=== PATIENT | male | born 1965 | race Caucasian/White ===

== ENCOUNTER → 2016-09-25 12:23 | Outpatient (CLI) | payer MEDICAID ==
[2016-04-06 10:38] VITALS: BMI 36.3
[~2016-09-25 12:23] MED LIST: BUSPAR10 MG PO; CALCIUM 600+D T1 TA1 PO; CARAFATE1 G/10 ML PO; CREON (PANCRELI1 CAP PO; CRESTOR10 MG PO; CRESTOR40 MG PO; DEPO TESTOSTERONE IM; DIFLUCAN200 MG PO; FISH OIL 1,0001 CA1 PO; GEMFIBROZIL600 MG PO; GLUCOPHAGE500 MG PO; GLUCOTROL XL 1010 MG PO; GLUCOTROL XL 5 M5 MG PO; HUMALOG 30100 UNITS/ SC; HYDROCODONE-APA1 TAB PO; JANUVIA100 MG PO; LANTUS INSULIN10 ML SC; LANTUS INSULIN10 ML SQ; LANTUS SOL100 UNIT/1; LIPITOR20 MG PO; LISINOPRIL10 MG PO; LISINOPRIL5 MG PO; LOPID600 MG PO; LOTRISONE CREAM45 GM; LOTRISONE CREAM45 GM TOPICAL; LOTRISONE CREAM45 GM TP; LYRICA25 MG PO; LYRICA50 MG PO; NORCO 10/325 TA1 TA1 PO; OS-CAL500 MG PO; PHENERGAN25 M1 PO; PRILOSEC20 MG PO; PRINIVIL20 MG PO; PROTONIX40 MG PO; REQUIP0.5 MG PO; SINEQUAN25 MG PO; TYLENOL 325 MG325 MG PO; VITAMIN D31000 UNI2 PO; WELLBUTRIN SR150 MG PO
[2016-09-25 12:59] LABS: BASOPHILS 0.2 % (0.0-2.0); EOSINOPHILS 0.6 % (0-7); HEMATOCRIT 45.4 % (42.0-54.0); HEMOGLOBIN 15.7 g/dL (13.5-17.5); IMMATURE GRANULOCYTES 0.5 % (0-5); LYMPHOCYTES 31.8 % (15-50); MCH 31.3 pg (26.0-34.0); MCHC 34.6 g/dL (31.0-37.0); MCV 90.4 fL (80.0-100.0); MONOCYTES 7.8 % (2-11); NEUTROPHILS 59.1 % (40-80); PLATELET COUNT 261 10x3/uL (130-400); RBC 5.02 10x6/uL (4.20-6.10); RDW 13.4 % (11.5-14.5); WBC 10.8 10x3/uL (4.8-10.8)
[2016-09-25 13:11] LABS: HEMOGLOBIN A1C 9.8 % (4.8-6.0)
[2016-09-25 13:30] LABS: ALKALINE PHOSPHATASE 58 U/L (46-116); ALT (SGPT) 64 U/L (10-68); BILIRUBIN - TOTAL 0.84 mg/dL (0.2-1.3); CALCIUM 9.1 mg/dL (8.5-10.1); CHLORIDE - SERUM 100 mmol/L (98-107); CHOL - HDL RATIO 5.7 ratio (2.3-4.9); CHOLESTEROL, TOTAL 181 mg/dL (0-200); CREATININE - SERUM 0.9 mg/dL (0.6-1.3); HDL CHOLESTEROL 32 mg/dL (32-96); PROTEIN - SERUM 7.8 g/dL (6.4-8.2); SODIUM 135 mmol/L (136-145); TRIGLYCERIDE 438 mg/dL (30-200); UREA NITROGEN 13 mg/dL (7-18); eGFR NON AFRICAN AMERICAN > 90 mL/min (90-120)
[2016-09-25 13:37] LABS: CALC OSMOLALITY 274 mosm/kg (275-300); GLUCOSE 184 mg/dL (74-106); SCREENING PSA (YEARLY) 0.19 ng/mL (0.00-4.00)
== END | disposition home or self-care (01) ==
LOC: D.LAB 09:00
PROVIDERS: Family Medicine
DX: Z00.00 Encounter for general adult medical examination without abnormal findings (principal); E11.9 Type 2 diabetes mellitus without complications; Z12.5 Encounter for screening for malignant neoplasm of prostate

== ENCOUNTER 2017-04-29 00:24 | Inpatient (IN) | payer MEDICARE, MEDICAID ==
[~2017-04-29] VITALS: Ht 182.9 cm; Wt 117.5 kg
[2017-04-29] MEDS ORDERED: LOMOTIL TABLET1 TAB PO (03:21)
[2017-04-29] MEDS ORDERED: LANTUS INSULIN10 ML SC (03:24)
[2017-04-29] MEDS ORDERED: HUMULIN R100 U/ML SC (03:26)
[2017-04-29] MEDS ORDERED: CYCLOBENZAPRINE10 MG PO (03:29)
[2017-04-30 09:54] VITALS: Ht 182.9 cm; Wt 117.5 kg
[2017-05-03 16:00] VITALS: BP 120/66
[2017-05-03] MEDS ORDERED: ALTOPREV40 MG (16:17)
[2017-05-03] MEDS ORDERED: VITAMIN D10000 UNI1 PO (16:22)
== END 2017-05-03 19:27 | disposition home or self-care (01) | DRG 638 ==
LOC: D.ER 00:24 → D.ICU 02:08 → D.M2 05-01 17:42 → D.SDCHOLD 05-03 10:42 → D.M2 05-03 10:44
PROVIDERS: ADMIT Family Medicine
DX: E13.10 Other specified diabetes mellitus with ketoacidosis without coma (principal); K86.1 Other chronic pancreatitis; E11.40 Type 2 diabetes mellitus with diabetic neuropathy, unspecified; I10 Essential (primary) hypertension; E78.5 Hyperlipidemia, unspecified; F32.9 Major depressive disorder, single episode, unspecified; G25.81 Restless legs syndrome; M54.9 Dorsalgia, unspecified; G89.29 Other chronic pain; K22.70 Barrett's esophagus without dysplasia; E83.42 Hypomagnesemia; E78.1 Pure hyperglyceridemia; E55.9 Vitamin D deficiency, unspecified; Z87.891 Personal history of nicotine dependence

== ENCOUNTER → 2017-07-20 11:54 | Outpatient (CLI) | payer MEDICARE, MEDICAID ==
[2017-04-30 09:54] VITALS: BMI 35.1
[~2017-07-20 11:54] MED LIST changes: +ALTOPREV40 MG; +CYCLOBENZAPRINE10 MG PO; +HUMULIN R100 U/ML SC; +LOMOTIL TABLET1 TAB PO; +VITAMIN D10000 UNI1 PO
== END | disposition home or self-care (01) ==
LOC: D.RAD 11:54
DX: M54.5 Low back pain (principal)

== ENCOUNTER → 2017-08-07 10:06 | Outpatient (CLI) | payer MEDICARE, MEDICAID ==
[2017-04-30 09:54] VITALS: BMI 35.1
[2017-08-07 10:45] LABS: BASOPHILS 0.2 % (0-2); EOSINOPHILS 1.7 % (0-7); HEMATOCRIT 44.2 % (42.0-54.0); IMMATURE GRANULOCYTES 0.2 % (0-5); LYMPHOCYTES 23.9 % (15-50); MCH 32.2 pg (26.0-34.0); MCHC 33.9 g/dL (31.0-37.0); MCV 94.8 fL (80.0-100.0); MEAN PLATELET VOLUME 10.4 fL (7.4-10.4); MONOCYTES 6.8 % (2-11); NEUTROPHILS 67.2 % (40-80); RBC 4.66 10x6/uL (4.20-6.10); RDW 12.7 % (11.5-14.5); WBC 11.3 10x3/uL (4.8-10.8)
[2017-08-07 10:52] LABS: PLATELET COUNT 263 10x3/uL (130-400)
[2017-08-07 11:04] LABS: HEMOGLOBIN A1C 7.5 % (4.8-6.0)
[2017-08-07 11:08] LABS: APPEARANCE CLEAR (CLEAR); BILIRUBIN NEGATIVE (NEGATIVE); COLOR YELLOW (YELLOW); GLUCOSE NEGATIVE (NEGATIVE); KETONE NEGATIVE (NEGATIVE); NITRITE NEGATIVE (NEGATIVE); PROTEIN NEGATIVE (NEGATIVE); UROBILINOGEN NORMAL (NORMAL)
[2017-08-07 11:15] LABS: CALC OSMOLALITY 277 mosm/kg (275-300); CALCIUM 9.7 mg/dL (8.5-10.1); CARBON DIOXIDE 29.3 mmol/L (21.0-32.0); CHLORIDE - SERUM 102 mmol/L (98-107); CHOL - HDL RATIO 3.2 ratio (2.3-4.9); CHOLESTEROL, TOTAL 143 mg/dL (0-200); GLUCOSE 112 mg/dL (74-106); HDL CHOLESTEROL 45 mg/dL (32-96); LDL CHOLESTEROL 67 mg/dL (0-100); LDL-HDL RATIO 1.5 ratio (1.5-3.5); POTASSIUM - SERUM 4.4 mmol/L (3.5-5.1); SODIUM 139 mmol/L (136-145); TRIGLYCERIDE 159 mg/dL (30-200); UREA NITROGEN 10 mg/dL (7-18); eGFR NON AFRICAN AMERICAN 84 mL/min (90-120)
[2017-08-08 06:12] LABS: VITAMIN D 25 HYDROXY 43.1 ng/mL (30.0-100.0)
[2017-08-09 15:18] LABS: TESTOSTERONE - FREE 11.4 pg/mL (6.8-21.5); TESTOSTERONE - SERUM 322 ng/dL (264-916)
== END | disposition home or self-care (01) ==
LOC: D.LAB 10:06
PROVIDERS: Family Medicine
DX: E11.9 Type 2 diabetes mellitus without complications (principal); E55.9 Vitamin D deficiency, unspecified; E78.1 Pure hyperglyceridemia; E78.81 Lipoid dermatoarthritis; G60.9 Hereditary and idiopathic neuropathy, unspecified; E23.6 Other disorders of pituitary gland

== ENCOUNTER 2017-10-20 21:55 | Emergency (ER) | payer MEDICARE, MEDICAID ==
[2017-04-30 09:54] VITALS: BMI 35.1
== END 2017-10-20 23:25 | disposition home or self-care (01) ==
LOC: D.ER 21:55
DX: R07.89 Other chest pain (principal); E11.9 Type 2 diabetes mellitus without complications; Z79.4 Long term (current) use of insulin; F17.200 Nicotine dependence, unspecified, uncomplicated

== ENCOUNTER 2017-11-18 18:10 | Emergency (ER) | payer MEDICARE, MEDICAID ==
[2017-04-30 09:54] VITALS: BMI 35.1
[2017-11-18 18:38] LABS: BASOPHILS 0.2 % (0-2); EOSINOPHILS 1.4 % (0-7); HEMATOCRIT 42.5 % (42.0-54.0); IMMATURE GRANULOCYTES 0.7 % (0-5); LYMPHOCYTES 35.5 % (15-50); MCH 31.8 pg (26.0-34.0); MCHC 35.3 g/dL (31.0-37.0); MEAN PLATELET VOLUME 10.6 fL (7.4-10.4); MONOCYTES 7.6 % (2-11); NEUTROPHILS 54.6 % (40-80); PLATELET COUNT 256 10x3/uL (130-400); RBC 4.72 10x6/uL (4.20-6.10); RDW 12.6 % (11.5-14.5); WBC 10.4 10x3/uL (4.8-10.8)
[2017-11-18 18:58] LABS: ALBUMIN 4.1 g/dL (3.4-5.0); ALKALINE PHOSPHATASE 60 U/L (46-116); ALT (SGPT) 46 U/L (10-68); BILIRUBIN - TOTAL 0.49 mg/dL (0.2-1.3); CALC OSMOLALITY 279 mosm/kg (275-300); CALCIUM 9.8 mg/dL (8.5-10.1); CARBON DIOXIDE 22.1 mmol/L (21.0-32.0); CHLORIDE - SERUM 97 mmol/L (98-107); POTASSIUM - SERUM 4.2 mmol/L (3.5-5.1); PROTEIN - SERUM 8.1 g/dL (6.4-8.2); SODIUM 135 mmol/L (136-145); UREA NITROGEN 15 mg/dL (7-18); eGFR NON AFRICAN AMERICAN 84 mL/min (90-120)
[2017-11-18 19:01] LABS: GLUCOSE 269 mg/dL (74-106)
[2017-11-18 19:04] LABS: APPEARANCE CLEAR (CLEAR); BILIRUBIN NEGATIVE (NEGATIVE); COLOR YELLOW (YELLOW); GLUCOSE 1000 mg/dL (NEGATIVE); KETONE NEGATIVE (NEGATIVE); NITRITE NEGATIVE (NEGATIVE); PROTEIN NEGATIVE (NEGATIVE); UROBILINOGEN NORMAL (NORMAL)
== END 2017-11-18 20:00 | disposition home or self-care (01) ==
LOC: D.ER 18:10
PROVIDERS: Family Medicine; Physician Assistant Medical
DX: R55 Syncope and collapse (principal); E11.65 Type 2 diabetes mellitus with hyperglycemia; Z79.4 Long term (current) use of insulin

== ENCOUNTER → 2018-01-01 10:27 | Outpatient (CLI) | payer MEDICARE, MEDICAID ==
[2017-04-30 09:54] VITALS: BMI 35.1
== END | disposition home or self-care (01) ==
LOC: D.LAB 10:27
PROVIDERS: Family Medicine
DX: E11.9 Type 2 diabetes mellitus without complications (principal)

== ENCOUNTER → 2018-06-03 15:05 | Outpatient (CLI) | payer MEDICARE, MEDICAID ==
[2017-04-30 09:54] VITALS: BMI 35.1
[2018-06-03 15:43] LABS: APPEARANCE CLEAR (CLEAR); COLOR YELLOW (YELLOW); SPECIFIC GRAVITY 1.015 (1.005-1.020)
[2018-06-03 15:44] LABS: BILIRUBIN NEGATIVE (NEGATIVE); GLUCOSE NEGATIVE (NEGATIVE); KETONE NEGATIVE (NEGATIVE); NITRITE NEGATIVE (NEGATIVE); PROTEIN NEGATIVE (NEGATIVE); UROBILINOGEN NORMAL (NORMAL)
[2018-06-03 16:01] LABS: ALBUMIN 4.1 g/dL (3.4-5.0); ALKALINE PHOSPHATASE 47 U/L (46-116); ALT (SGPT) 55 U/L (10-68); BILIRUBIN - TOTAL 0.53 mg/dL (0.2-1.3); CALC OSMOLALITY 278 mosm/kg (275-300); CALCIUM 9.5 mg/dL (8.5-10.1); CARBON DIOXIDE 22.2 mmol/L (21.0-32.0); CHLORIDE - SERUM 102 mmol/L (98-107); CHOLESTEROL, TOTAL 170 mg/dL (0-200); CREATININE - SERUM 0.9 mg/dL (0.6-1.3); GLUCOSE 93 mg/dL (74-106); HDL CHOLESTEROL 34 mg/dL (32-96); LDL CHOLESTEROL 64 mg/dL (0-100); LDL-HDL RATIO 1.9 ratio (1.5-3.5); PROTEIN - SERUM 7.5 g/dL (6.4-8.2); SODIUM 139 mmol/L (136-145); TRIGLYCERIDE 363 mg/dL (30-200); UREA NITROGEN 14 mg/dL (7-18); eGFR NON AFRICAN AMERICAN > 90 mL/min (90-120)
== END | disposition home or self-care (01) ==
LOC: D.LAB 11:00
PROVIDERS: Family Medicine
DX: E11.8 Type 2 diabetes mellitus with unspecified complications (principal); M54.5 Low back pain; I10 Essential (primary) hypertension; E78.81 Lipoid dermatoarthritis

== ENCOUNTER → 2018-06-28 14:11 | Outpatient (CLI) | payer MEDICARE, MEDICAID ==
[2017-04-30 09:54] VITALS: BMI 35.1
[2018-06-28 15:15] LABS: BASOPHILS 0.3 % (0-2); EOSINOPHILS 1.5 % (0-7); HEMATOCRIT 41.8 % (42.0-54.0); HEMOGLOBIN 14.2 g/dL (13.5-17.5); IMMATURE GRANULOCYTES 0.6 % (0-5); LYMPHOCYTES 37.1 % (15-50); MCH 31.4 pg (26.0-34.0); MCV 92.5 fL (80.0-100.0); MEAN PLATELET VOLUME 10.6 fL (7.4-10.4); MONOCYTES 7.1 % (2-11); NEUTROPHILS 53.4 % (40-80); RBC 4.52 10x6/uL (4.20-6.10); RDW 12.9 % (11.5-14.5)
[2018-06-28 15:50] LABS: PLATELET COUNT 324 10x3/uL (130-400)
[2018-06-28 17:17] LABS: ERYTHROCYTE SEDIMENTATION RATE 15 mm/hr (0-20)
== END | disposition home or self-care (01) ==
LOC: D.CT 14:11
PROVIDERS: Family Medicine
DX: R51 Headache (principal); J01.90 Acute sinusitis, unspecified; H53.9 Unspecified visual disturbance

== ENCOUNTER → 2018-09-04 12:41 | Outpatient (CLI) | payer MEDICARE, MEDICAID ==
[2017-04-30 09:54] VITALS: BMI 35.1
== END | disposition home or self-care (01) ==
LOC: D.LAB 12:41
DX: E23.6 Other disorders of pituitary gland (principal)

== ENCOUNTER 2018-10-20 15:51 | Emergency (ER) | payer MEDICARE, MEDICAID ==
[~2018-10-20] VITALS: Ht 182.9 cm; Wt 131.8 kg
[2018-10-20 15:54] VITALS: Ht 182.9 cm; Wt 131.8 kg
[2018-10-20 16:24] LABS: BASOPHILS 0.4 % (0-2); EOSINOPHILS 0.1 % (0-7); HEMATOCRIT 41.8 % (42.0-54.0); HEMOGLOBIN 14.5 g/dL (13.5-17.5); IMMATURE GRANULOCYTES 0.7 % (0-5); LYMPHOCYTES 13.5 % (15-50); MCH 31.3 pg (26.0-34.0); MCHC 34.7 g/dL (31.0-37.0); MCV 90.3 fL (80.0-100.0); MEAN PLATELET VOLUME 10.2 fL (7.4-10.4); MONOCYTES 11.9 % (2-11); NEUTROPHILS 73.4 % (40-80); RBC 4.63 10x6/uL (4.20-6.10); RDW 13.8 % (11.5-14.5); WBC 8.1 10x3/uL (4.8-10.8)
[2018-10-20 16:36] LABS: ALBUMIN 3.7 g/dL (3.4-5.0); ALKALINE PHOSPHATASE 77 U/L (46-116); ALT (SGPT) 104 U/L (10-68); CALC OSMOLALITY 274 mosm/kg (275-300); CALCIUM 8.8 mg/dL (8.5-10.1); CARBON DIOXIDE 21.8 mmol/L (21.0-32.0); CHLORIDE - SERUM 91 mmol/L (98-107); CREATININE - SERUM 1.4 mg/dL (0.6-1.3); POTASSIUM - SERUM 4.6 mmol/L (3.5-5.1); SODIUM 128 mmol/L (136-145); UREA NITROGEN 20 mg/dL (7-18); eGFR NON AFRICAN AMERICAN 57 mL/min (90-120)
[2018-10-20 16:39] LABS: GLUCOSE 362 mg/dL (74-106); PLATELET COUNT 209 10x3/uL (130-400)
[2018-10-20 16:47] LABS: CKMB 0.5 U/L (0.0-3.6); CREATINE KINASE 226 UL (21-232)
[2018-10-20 16:48] LABS: TROPONIN-I < 0.017 ng/mL (0.000-0.060)
[2018-10-20 17:41] LABS: AMYLASE - SERUM 17 U/L (25-115)
[2018-10-20 17:42] LABS: LIPASE 46 U/L (73-393)
[2018-10-20 18:29] LABS: KETONE - SERUM NEGATIVE (NEGATIVE)
[2018-10-20 20:02] LABS: APPEARANCE CLEAR (CLEAR); BILIRUBIN NEGATIVE (NEGATIVE); COLOR YELLOW (YELLOW); GLUCOSE 1000 mg/dL (NEGATIVE); KETONE MODERATE mg/dL (NEGATIVE); NITRITE NEGATIVE (NEGATIVE); PROTEIN NEGATIVE (NEGATIVE); UROBILINOGEN NORMAL (NORMAL)
[2018-10-20] MEDS ORDERED: GUAIFENESI100 MG/5 M PO (20:48)
[2018-10-20] MEDS ORDERED: PHENERGAN25 M1 PO (20:48)
[2018-10-20] MEDS ORDERED: TAMIFLU75 MG PO (20:48)
[2018-10-20 21:05] VITALS: BP 148/79
== END 2018-10-20 21:05 | disposition home or self-care (01) ==
LOC: D.ER 15:51
PROVIDERS: Emergency Medicine
DX: J09.X2 Influenza due to identified novel influenza A virus with other respiratory manifestations (principal); E86.0 Dehydration; R74.8 Abnormal levels of other serum enzymes; R53.1 Weakness

== ENCOUNTER 2018-12-26 13:18 | Inpatient (IN) | payer MEDICARE, MEDICAID ==
[~2018-12-26] VITALS: Ht 182.9 cm; Wt 127.0 kg
[~2018-12-26 13:18] MED LIST changes: +GUAIFENESI100 MG/5 M PO; +TAMIFLU75 MG PO
[2018-12-26] MEDS ORDERED: CREON (PANCRELI1 CAP PO ×2 (13:38→13:39)
[2018-12-26 14:16] LABS: BASOPHILS 0.2 % (0-2); EOSINOPHILS 1.1 % (0-7); HEMATOCRIT 45.6 % (42.0-54.0); HEMOGLOBIN 15.8 g/dL (13.5-17.5); IMMATURE GRANULOCYTES 0.4 % (0-5); MCHC 34.6 g/dL (31.0-37.0); MCV 86.7 fL (80.0-100.0); MEAN PLATELET VOLUME 10.6 fL (7.4-10.4); MONOCYTES 8.6 % (2-11); NEUTROPHILS 56.7 % (40-80); PLATELET COUNT 208 10x3/uL (130-400); RBC 5.26 10x6/uL (4.20-6.10); RDW 13.6 % (11.5-14.5); WBC 8.5 10x3/uL (4.8-10.8)
[2018-12-26 14:29] LABS: ALBUMIN 3.7 g/dL (3.4-5.0); ALKALINE PHOSPHATASE 77 U/L (46-116); ALT (SGPT) 62 U/L (10-68); AMYLASE - SERUM 14 U/L (25-115); BILIRUBIN - TOTAL 1.19 mg/dL (0.2-1.3); CALCIUM 9.1 mg/dL (8.5-10.1); CARBON DIOXIDE 22.2 mmol/L (21.0-32.0); CHLORIDE - SERUM 92 mmol/L (98-107); CREATININE - SERUM 1.2 mg/dL (0.6-1.3); POTASSIUM - SERUM 5.2 mmol/L (3.5-5.1); PROTEIN - SERUM 7.9 g/dL (6.4-8.2); SODIUM 126 mmol/L (136-145); UREA NITROGEN 15 mg/dL (7-18); eGFR NON AFRICAN AMERICAN 68 mL/min (90-120)
[2018-12-26 14:32] LABS: CALC OSMOLALITY 277 mosm/kg (275-300); LIPASE 40 U/L (73-393); TROPONIN-I < 0.017 ng/mL (0.000-0.060)
[2018-12-26 14:33] LABS: GLUCOSE 523 mg/dL (74-106)
[2018-12-26 14:54] LABS: APPEARANCE CLEAR (CLEAR); BILIRUBIN NEGATIVE (NEGATIVE); COLOR STRAW (YELLOW); GLUCOSE 250 mg/dL (NEGATIVE); KETONE NEGATIVE (NEGATIVE); NITRITE NEGATIVE (NEGATIVE); PROTEIN NEGATIVE (NEGATIVE); SPECIFIC GRAVITY 1.015 (1.005-1.020); UROBILINOGEN NORMAL (NORMAL)
--- NOTE | 2018-12-26 17:19 | MORECARE ---
CASE MANAGEMENT DISCHARGE SUMMARY PATIENT: OBINNA TAYLOR UNIT: [id number] ADM DATE: 12/26/18 AGE: 53 : 69 SEX: M ROOM/BED: D.2230 AUTHOR: RODNEY,DOC PHYSICIAN: REFERRING PHYSICIAN: ROSHNI MG MD DATE OF SERVICE: 12/26/18 Discharge Plan Patient Name: OBINNA TAYLOR Facility: [facility]:[place] : 1965 Planned Disposition: Home Anticipated Discharge Date: 12/28/18 Discharge Date: Expected LOS: 2 Initial Reviewer: [email or web address] Initial Review Date: 12/26/2018 Generated: 12/26/18 6:18 pm DCP- Discharge Planning Updated by [email or web address]: Zora Back on 12/26/18 4:[address] Patient Name: OBINNA TAYLOR Admission Status: ER Accout number: [id number] Admission Date: 12-26-2018 : 1965 Admission Diagnosis: Attending: ROSHNI MG Current LOS: 1 Anticipated DC Date: 12-28-2018 Planned Disposition: Home Primary Insurance: [facility] MEDICARE SOLUTIONS Discharge Planning Comments: CM met with patient to complete initial dc planning assessment. CM educated patient on the CM role and verbal consent given by patient to complete assessment. CM verified patient's address, phone number, and emergency contact phone numbers. Patient lives at home alone and reports he is independent in his care at home. At discharge patient plans to return home alone and feels this is a safe discharge. CM discussed availability of home health, rehab services, and medical equipment. Patient denied known discharge needs at this time. Patient reports he has numerous friends or adventist members that will transport him home at time of discharge. CM will continue to follow and will assist as needed with dc plans/needs. Regional Vice President Surgical Sales: Zora Back RN, [facility] DCPIA - Discharge Planning Initial Assessment Updated by [email or web address]: Zora Back on 12/26/18 5:17 pm * Is the patient Alert and Oriented? Yes * PCP Dr. Mg * Pharmacy [facility] [facility] * Preadmission Environment Home Alone * ADLs Independent * Equipment Cane Glucometer * Other Equipment Checks his sugar qid. Denies any problems getting or purchasing his diabetes supplies. * List name and contact numbers for known caregivers / representatives who currently or will assist patient after discharge: Анна Hayes - sister - [phone] * Verbal permission to speak to the caregivers and representatives has been obtained from the patient. Yes * Community resources currently utilized None * Additional services required to return to the preadmission environment? No * Can the patient safely return to the preadmission environment? Yes * Has this patient been hospitalized within the prior 30 days at any hospital? No Patient Name: OBINNA TAYLOR Page [id number] at 1719 All edits/amendments must be made on the electronic document DICTATION DATE: 12/26/181717 ASSET MANAGEMENT LEAD: JULITA 12/26/181717 RPT#: [id number] DC DATE: STATUS: ADM IN [facility] [address] [place] [address] END OF REPORT
--- NOTE | 2018-12-26 17:45 | NUR ---
ASSESSMENT PER FLOW SHEET. PT IS WITHOUT DISTRESS.ORIENTATION TO ROOM.CALL LIGHT IN REACH.WATER PROVIDED.
[2018-12-26] MEDS ORDERED: GLUCOTROL XL 1010 MG PO (18:23)
[2018-12-26] MEDS ORDERED: GLUCOPHAGE1000 MG PO (18:24)
[2018-12-26] MEDS ORDERED: GLUCOPHAGE500 MG PO (18:24)
[2018-12-26] MEDS ORDERED: LANTUS INSULIN10 ML SC (18:25)
[2018-12-26] MEDS ORDERED: CRESTOR40 MG PO (18:27)
[2018-12-26] MEDS ORDERED: LOPID600 MG PO (18:27)
[2018-12-26 18:44] VITALS: BP 148/99; BMI 38.0
[2018-12-26 20:00] VITALS: BP 126/80
[2018-12-26] MEDS ORDERED: PROTONIX40 MG PO (22:04)
[2018-12-27] VITALS: BP 102/56
--- NOTE | 2018-12-27 00:46 | NUR ---
C/O 8/10 ABDOMINAL PAIN AND EPISODES OF DIARRHEA. NO N/V. BOWEL SOUNDS HYPERACTIVE.REQUESTS PRN PAIN AND DIARRHEA MEDICATION.
--- NOTE | 2018-12-27 03:43 | NUR ---
I have reviewed this patient and I concur with the Shift Assessment completed by the Licensed Practical Nurse today this shift.
[2018-12-27 04:00] VITALS: BP 97/52
[2018-12-27 05:08] LABS: BASOPHILS 0.3 % (0-2); EOSINOPHILS 1.7 % (0-7); HEMATOCRIT 39.5 % (42.0-54.0); HEMOGLOBIN 13.7 g/dL (13.5-17.5); IMMATURE GRANULOCYTES 0.3 % (0-5); LYMPHOCYTES 48.6 % (15-50); MCH 30.2 pg (26.0-34.0); MCHC 34.7 g/dL (31.0-37.0); MEAN PLATELET VOLUME 10.6 fL (7.4-10.4); MONOCYTES 7.4 % (2-11); NEUTROPHILS 41.7 % (40-80); PLATELET COUNT 205 10x3/uL (130-400); RBC 4.54 10x6/uL (4.20-6.10); RDW 13.6 % (11.5-14.5); WBC 6.7 10x3/uL (4.8-10.8)
[2018-12-27 05:33] LABS: ALKALINE PHOSPHATASE 64 U/L (46-116); ALT (SGPT) 53 U/L (10-68); CALCIUM 8.2 mg/dL (8.5-10.1); CARBON DIOXIDE 23.1 mmol/L (21.0-32.0); CHLORIDE - SERUM 100 mmol/L (98-107); CHOL - HDL RATIO 8.5 ratio (2.3-4.9); CHOLESTEROL, TOTAL 203 mg/dL (0-200); CREATININE - SERUM 0.9 mg/dL (0.6-1.3); HDL CHOLESTEROL 24 mg/dL (32-96); PROTEIN - SERUM 6.6 g/dL (6.4-8.2); SODIUM 134 mmol/L (136-145); UREA NITROGEN 14 mg/dL (7-18); eGFR NON AFRICAN AMERICAN > 90 mL/min (90-120)
[2018-12-27 05:36] LABS: CALC OSMOLALITY 278 mosm/kg (275-300); GLUCOSE 271 mg/dL (74-106); POTASSIUM - SERUM 3.8 mmol/L (3.5-5.1); TRIGLYCERIDE 1088 mg/dL (30-200)
--- NOTE | 2018-12-27 08:00 | NUR ---
LYING IN BED,WITHOUT DISTRESS.MONITOR FOR NEEDS
[2018-12-27 09:49] VITALS: BP 132/78
[2018-12-27 12:01] VITALS: Ht 182.9 cm; Wt 127.0 kg
[2018-12-27 14:38] VITALS: BP 130/83
--- NOTE | 2018-12-27 15:37 | NUR ---
ATTEMPTED X 2 WITH 22 GAUGE IV IN LEFT ARM WITHOUT ANY SUCCESS GOT A FLASH THEN THE CATHETER WOULD NOT THREAD BOTH IV CATHETERS DC WITH TIPS INTACT. CHASTITY HEARD RN STARTED A 22 GAUGE IN RIGHT HAND FLUSHED WITHOUT DIFFICULTY SECURED WITH TEGADERM AND TAPE. SALINE LOCKED
[2018-12-27 18:02] VITALS: BP 136/85
[2018-12-27 19:53] VITALS: BP 144/86
--- NOTE | 2018-12-27 21:30 | NUR ---
PT REQUEST HIS PRN FLEXERIL THAT HE TAKES AT HOME. NOT ON MAR, NOTIFIED AND ORDER ENTERED. SAP BASIS ARCHITECT NOTIFIED TO PULL FROM [facility]. PT INFORMED AND VERBALIZES UNDERSTANDING.
--- NOTE | 2018-12-28 03:55 | NUR ---
I have reviewed this patient and I concur with the Shift Assessment completed by the Licensed Practical Nurse today this shift.
[2018-12-28 04:00] VITALS: BP 126/83
[2018-12-28 06:37] LABS: ALBUMIN 2.9 g/dL (3.4-5.0); ALKALINE PHOSPHATASE 63 U/L (46-116); ALT (SGPT) 54 U/L (10-68); BILIRUBIN - TOTAL 0.71 mg/dL (0.2-1.3); CALCIUM 8.2 mg/dL (8.5-10.1); CARBON DIOXIDE 21.6 mmol/L (21.0-32.0); CHLORIDE - SERUM 105 mmol/L (98-107); CREATININE - SERUM 0.8 mg/dL (0.6-1.3); MAGNESIUM - SERUM 1.9 mg/dL (1.8-2.4); PHOSPHOROUS 3.7 mg/dL (2.5-4.9); POTASSIUM - SERUM 3.7 mmol/L (3.5-5.1); PROTEIN - SERUM 6.4 g/dL (6.4-8.2); SODIUM 137 mmol/L (136-145); eGFR NON AFRICAN AMERICAN > 90 mL/min (90-120)
[2018-12-28 06:39] LABS: CALC OSMOLALITY 278 mosm/kg (275-300); GLUCOSE 203 mg/dL (74-106); UREA NITROGEN 9 mg/dL (7-18)
--- NOTE | 2018-12-28 09:00 | NUR ---
ALERT AND ORIENTED X3. LUNGS CTA.ABDOMEN OBESE WITH BS NOTED X4. C/O DIARRHEA STOOL. IMMODIUM GIVEN PRN. EVF INFUSING AT PRESCRIBED RATE TO RT. WRIST. ENCOURAGED TO USE CALL LIGHT FOR ASSIST.
[2018-12-28 09:34] VITALS: BP 135/76
[2018-12-28 13:09] VITALS: BP 128/77
[2018-12-28 16:26] VITALS: BP 124/85
--- NOTE | 2018-12-28 19:40 | NUR ---
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 ALERT AND ORIENTED X4. RESP EVEN AND NONLABORED. BBS CTA. ABD DISTENDED AND FIRM. BS PRESENT X4 QUADS. DENIES PAIN. NO N/V/D. LAST EPISODE OF DIARRHEA WAS THIS AM. 1+ EDEMA NOTED TO BLE. MVI INFUSING @ 125 ML/HR INFUSING IN RT WRIST WITHOUT DIFF. AMBULATORY WITH CANE. CL IN REACH.
[2018-12-28 19:52] VITALS: BP 155/80
--- NOTE | 2018-12-28 21:33 | NUR ---
REQUESTS FLEXERIL FOR MUSCLE SPASMS IN BLE. CL IN REACH.
[2018-12-29] VITALS: BP 132/77
[2018-12-29 04:00] VITALS: BP 121/72
--- NOTE | 2018-12-29 08:30 | NUR ---
ALERT AND ORIENTED WITH ABDOMEN OBESE WITH BS NOTED. IVF INFUSING AT PRESCRIBED RATE TO RT. WRIST. LUNGS CTA WITH HRRR. DENIES ANY PAIN OR DISCOMFORT AND ENCOURAGED TO USE CALL LIGHT FOR ASIST
[2018-12-29 09:03] VITALS: BP 151/84
[2018-12-29 12:40] VITALS: BP 145/80
[2018-12-29 17:09] VITALS: BP 141/92
--- NOTE | 2018-12-29 19:50 | NUR ---
SITTING UP ON SIDE OF BED. DENIES PAIN, N/V/D. TALKATIVE. NO DISTRESS. RESP EVEN AND NONLABORED. MVI INFUSING IN RT WRIST WITHOUT DIFF. ABD DISTENDED AND FIRM. BS PRESENT X4 QUADS. BBS CTA. 2+ EDEMA NOTED TO BLE. RT HEEL HAS A CRACK. CL IN REACH. ALERT AND ORIENTED X4.
[2018-12-29 20:00] VITALS: BP 147/73
[2018-12-30] VITALS: BP 151/70
--- NOTE | 2018-12-30 01:28 | NUR ---
HAS RESTED WELL SO FAR THIS SHIFT. RECEIVED A FLEXERIL AT BEDTIME FOR MUSCLE PAIN IN BLE. CL IN REACH.
[2018-12-30 03:00] VITALS: BP 144/84
[2018-12-30 08:46] VITALS: BP 136/81
[2018-12-30 12:30] VITALS: BP 138/85
--- NOTE | 2018-12-30 12:34 | NUR ---
PT RESTING IN BED. NO SIGNS OF DISTRESS. IV TO RIGHT WRIST PATENT NO REDNESS OR TENDERNESS. DENIES ANY FUTHER NEED AT THIS TIME. CALL LIGHT IN REACH. BED LOW POSITION. NO FAMILY AT BEDSIDE AT THIS TIME.
--- NOTE | 2018-12-30 13:00 | NUR ---
I have reviewed this patient and I concur with the Shift Assessment completed by the Licensed Practical Nurse today this shift.
--- NOTE | 2018-12-30 13:42 | NUR ---
Nutrition Follow up Diet advanced to [facility] with 100% intake of meals Pt reports tolerating meals well and he hopes to d/c tomorrow Pt has no questions about diabetic diet RD following
[2018-12-30 17:01] VITALS: BP 148/88
--- NOTE | 2018-12-30 19:51 | NUR ---
REC'D IN BED PLAYING GAME ON PHONE.DENIES NAUSEA AT PRESENT TIME WILL CONTINUE TO MONITOR FOR ANY AHGES. AND FOLLOW CURRENT PLAN OF CARE.
[2018-12-30 20:06] LABS: OVA + PARASITE EXAM Final report (())
[2018-12-30 21:31] VITALS: BP 138/84
[2018-12-31 00:18] VITALS: BP 131/65
[2018-12-31 04:15] LABS: BASOPHILS 0.3 % (0-2); EOSINOPHILS 1.6 % (0-7); HEMATOCRIT 41.8 % (42.0-54.0); HEMOGLOBIN 14.3 g/dL (13.5-17.5); IMMATURE GRANULOCYTES 0.3 % (0-5); LYMPHOCYTES 42.9 % (15-50); MCH 29.5 pg (26.0-34.0); MCHC 34.2 g/dL (31.0-37.0); MCV 86.4 fL (80.0-100.0); MEAN PLATELET VOLUME 10.9 fL (7.4-10.4); MONOCYTES 8.9 % (2-11); PLATELET COUNT 203 10x3/uL (130-400); RBC 4.84 10x6/uL (4.20-6.10); RDW 13.3 % (11.5-14.5); WBC 6.3 10x3/uL (4.8-10.8)
--- NOTE | 2018-12-31 04:21 | NUR ---
I have reviewed this patient and I concur with the Shift Assessment completed by the Licensed Practical Nurse today this shift.
[2018-12-31 04:29] LABS: CALC OSMOLALITY 280 mosm/kg (275-300); CALCIUM 8.8 mg/dL (8.5-10.1); CARBON DIOXIDE 25.3 mmol/L (21.0-32.0); CHLORIDE - SERUM 102 mmol/L (98-107); CREATININE - SERUM 0.9 mg/dL (0.6-1.3); GLUCOSE 219 mg/dL (74-106); POTASSIUM - SERUM 4.1 mmol/L (3.5-5.1); SODIUM 137 mmol/L (136-145); UREA NITROGEN 12 mg/dL (7-18); eGFR NON AFRICAN AMERICAN > 90 mL/min (90-120)
[2018-12-31 05:03] VITALS: BP 134/60
[2018-12-31] MEDS ORDERED: FLAGYL500 MG PO (08:15)
[2018-12-31] MEDS ORDERED: LEVOFLOXACIN500 MG PO (08:15)
[2018-12-31] MEDS ORDERED: FLORAJEN3 CAPS460 MG PO (08:16)
--- NOTE | 2018-12-31 08:17 | NUR ---
PT RESTING IN BED. NO SIGNS OF DISTRESS. IV TO LEFT WRIST PATENT NO REDNESS OR TENDERNESS. DENIES ANY FUTHER NEED AT THIS TIME. CALL LIGHT IN REACH. BED LOW POSITION. NO FAMILY AT BEDSIDE AT THIS TIME.
[2018-12-31 08:43] VITALS: BP 133/71
--- NOTE | 2018-12-31 09:48 | MORECARE ---
CASE MANAGEMENT DISCHARGE SUMMARY PATIENT: OBINNA TAYLOR UNIT: [id number] ADM DATE: 12/26/18 AGE: 53 : 69 SEX: M ROOM/BED: D.2230 AUTHOR: RODNEYDOC PHYSICIAN: REFERRING PHYSICIAN: ROSHNI MG MD DATE OF SERVICE: 12/31/18 Discharge Plan Patient Name: OBINNA TAYLOR Facility: [facility]:[place] : 1965 Planned Disposition: Home Anticipated Discharge Date: 12/28/18 Discharge Date: Expected LOS: 2 Initial Reviewer: [email or web address] Initial Review Date: 12/26/2018 Generated: 12/31/18 10:48 am Comments DCP- Discharge Planning Updated by [email or web address]: Anna Marie Vuong on 12/31/18 8:[address] Patient Name: OBINNA TAYLOR Encounter No: [id number] : 1965 Primary Insurance: [facility] MEDICARE SOLUTIONS Anticipated DC Date: 12-28-2018 Planned Disposition: Home External Planned Provider: : DCP follow-up note: Patient and family in agreement with discharge plan. No changes to plan. Case management will follow and assist as needed. Anna Marie Vuong DCP- Discharge Planning Updated by [email or web address]: Zora Back on 12/26/18 4:[address] Patient Name: OBINNA TAYLOR Admission Status: ER Accout number: [id number] Admission Date: 12-26-2018 : 1965 Admission Diagnosis: Attending: ROSHNI MG Current LOS: 1 Anticipated DC Date: 12-28-2018 Planned Disposition: Home Primary Insurance: [facility] MEDICARE SOLUTIONS Discharge Planning Comments: CM met with patient to complete initial dc planning assessment. CM educated patient on the CM role and verbal consent given by patient to complete assessment. CM verified patient's address, phone number, and emergency contact phone numbers. Patient lives at home alone and reports he is independent in his care at home. At discharge patient plans to return home alone and feels this is a safe discharge. CM discussed availability of home health, rehab services, and medical equipment. Patient denied known discharge needs at this time. Patient reports he has numerous friends or congregation members that will transport him home at time of discharge. CM will continue to follow and will assist as needed with dc plans/needs. Photo Stylist: Zora Back RN, [facility] DCPIA - Discharge Planning Initial Assessment Updated by [email or web address]: Zora Back on 12/26/18 5:17 pm * Is the patient Alert and Oriented? Yes * PCP Dr. Mg * Pharmacy [facility] * Preadmission Environment Home Alone * ADLs Independent * Equipment Cane Glucometer * Other Equipment Checks his sugar qid. Denies any problems getting or purchasing his diabetes supplies. * List name and contact numbers for known caregivers / representatives who currently or will assist patient after discharge: Анна Hayes - [facility] - [phone] * Verbal permission to speak to the caregivers and representatives has been obtained from the patient. Yes * Community resources currently utilized None * Additional services required to return to the preadmission environment? No * Can the patient safely return to the preadmission environment? Yes * Has this patient been hospitalized within the prior 30 days at any hospital? No Coverage Notice Reviewer: [id number] Jimmie Vuong Notice Issued Date-Time: 12/31/2018 9:47 Notice Type: IM Discharge Notice Notice Delivered To: Patient Relationship to Patient: Self [employer] Technical [employer] Specialist Name: Delivery Method: HAND - Hand Delivered Mirian Days: Prior Verbal Notification: Recipient Understood Notice: Yes Recipient Signature: Yes Med Rec Note Co-signed by Attending: Coverage Notice Comment: IMM explained, signed, given, copy placed in MR Last DP export: 12/26/18 4:18 p Patient Name: OBINNA TAYLOR Page [id number] at 0948 All edits/amendments must be made on the electronic document DICTATION DATE: 12/31/18946 OUTPATIENT INTERVIEWING CLERK: JULITA 12/31/18946 RPT#: [id number] DC DATE: STATUS: ADM IN [facility] [address] [place] [address] END OF REPORT
[2018-12-31 14:40] VITALS: BP 125/78
[2018-12-31 16:55] VITALS: BP 131/83
--- NOTE | 2018-12-31 17:13 | NUR ---
DISCHARGE INSTRUCTIONS GIVEN. SEEMS TO UNDERSTAND INSTRUCTIONS. IV OUT TIP INTACT. LEFT [facility] STAFF TO GO HOME IN PERSONAL RIDE. DENIES ANY NEED BEFORE LEAVING.
== END 2018-12-31 17:14 | disposition home or self-care (01) | DRG 392 ==
LOC: D.ER 13:18 → D.MS 17:06
PROVIDERS: Family Medicine; Internal Medicine Gastroenterology; ADMIT Family Medicine; ATTEND Family Medicine
DX: A09 Infectious gastroenteritis and colitis, unspecified (principal); K86.1 Other chronic pancreatitis; E11.65 Type 2 diabetes mellitus with hyperglycemia; E11.69 Type 2 diabetes mellitus with other specified complication; M54.5 Low back pain; E78.5 Hyperlipidemia, unspecified; I10 Essential (primary) hypertension; G25.81 Restless legs syndrome

== ENCOUNTER → 2019-02-12 08:42 | Outpatient (CLI) | payer MEDICARE, MEDICAID ==
[2018-12-27 12:01] VITALS: BMI 38.0
[~2019-02-12 08:42] MED LIST changes: +FLAGYL500 MG PO; +FLORAJEN3 CAPS460 MG PO; +GLUCOPHAGE1000 MG PO; +LEVOFLOXACIN500 MG PO
== END | disposition home or self-care (01) ==
LOC: D.RAD 08:42
PROVIDERS: ATTEND Family Medicine
DX: R06.02 Shortness of breath (principal)

== ENCOUNTER → 2019-06-25 08:10 | Outpatient (CLI) | payer MEDICARE, MEDICAID ==
[2018-12-27 12:01] VITALS: BMI 38.0
[2019-06-25 08:54] LABS: CHOL - HDL RATIO 4.8 ratio (2.3-4.9); LDL-HDL RATIO 1.4 ratio (1.5-3.5)
== END | disposition home or self-care (01) ==
LOC: D.LAB 08:10
PROVIDERS: ATTEND Family Medicine
DX: E23.6 Other disorders of pituitary gland (principal); E78.81 Lipoid dermatoarthritis; E11.9 Type 2 diabetes mellitus without complications

== ENCOUNTER → 2020-01-20 08:33 | Outpatient (CLI) | payer MEDICARE, MEDICAID ==
[2018-12-27 12:01] VITALS: BMI 38.0
[2020-01-20 09:37] LABS: BASOPHILS 0.3 % (0-2); EOSINOPHILS 0.9 % (0-7); HEMATOCRIT 44.2 % (42.0-54.0); HEMOGLOBIN 14.8 g/dL (13.5-17.5); IMMATURE GRANULOCYTES 0.3 % (0-5); LYMPHOCYTES 43.2 % (15-50); MCH 30.1 pg (26.0-34.0); MCHC 33.5 g/dL (31.0-37.0); MCV 89.8 fL (80.0-100.0); MEAN PLATELET VOLUME 10.7 fL (7.4-10.4); MONOCYTES 7.8 % (2-11); NEUTROPHILS 47.5 % (40-80); RBC 4.92 10x6/uL (4.20-6.10); RDW 13.4 % (11.5-14.5); WBC 7.4 10x3/uL (4.8-10.8)
[2020-01-20 09:48] LABS: PLATELET COUNT 276 10x3/uL (130-400)
[2020-01-20 10:20] LABS: ALBUMIN 4.3 g/dL (3.4-5.0); ALKALINE PHOSPHATASE 61 U/L (30-120); ALT (SGPT) 61 U/L (10-68); CALCIUM 9.2 mg/dL (8.5-10.1); CARBON DIOXIDE 27.2 mmol/L (21.0-32.0); CHLORIDE - SERUM 99 mmol/L (98-107); CHOLESTEROL, TOTAL 186 mg/dL (0-200); HDL CHOLESTEROL 31 mg/dL (32-96); POTASSIUM - SERUM 4.1 mmol/L (3.5-5.1); SODIUM 136 mmol/L (136-145); THYROID STIMULATING HORMONE 0.97 uIU/mL (0.36-3.74); UREA NITROGEN 16 mg/dL (7-18); eGFR NON AFRICAN AMERICAN 83 mL/min (90-120)
[2020-01-20 10:21] LABS: CALC OSMOLALITY 272 mosm/kg (275-300); GLUCOSE 92 mg/dL (74-106); TRIGLYCERIDE 633 mg/dL (30-200)
[2020-01-20 11:19] LABS: BILIRUBIN NEGATIVE (NEGATIVE); GLUCOSE 50 mg/dL (NEGATIVE); KETONE NEGATIVE (NEGATIVE); NITRITE NEGATIVE (NEGATIVE); SPECIFIC GRAVITY 1.015 (1.005-1.020)
[2020-01-21 08:12] LABS: MICROALBUMIN - RANDOM URINE 30.2 ug/mL (Not Estab.)
== END | disposition home or self-care (01) ==
LOC: D.LAB 08:33
PROVIDERS: ATTEND Family Medicine
DX: K22.70 Barrett's esophagus without dysplasia (principal); Z00.00 Encounter for general adult medical examination without abnormal findings; E78.81 Lipoid dermatoarthritis; I10 Essential (primary) hypertension; E11.9 Type 2 diabetes mellitus without complications; E23.6 Other disorders of pituitary gland